=== PATIENT | female | born 1945 | race African-American/Black ===

== ENCOUNTER → 2017-11-16 | Outpatient (CLI) | payer OTHER ==
[~2017-11-16] VITALS: Ht 165.1 cm; Wt 77.5 kg
[~2017-11-16] MED LIST: ASA5UEC PO; ASPIRIN81 M2 PO; CALCIUM 500 +1 EAC5 PO; CARDIZEM CD240 MG PO; CYMBALTA30 MG PO; DICLOFENAC SODI75 MG PO; FLEXERIL PO; HYDROCHLOROTH12.5 M1 PO; LEVOTHYROXIN0.075 MG PO; LEVOTHYROXINE0.05 MG PO; NUCYNTA50 MG PO; OXYBUTYNIN ER PO; PANTOPRAZOLE SO40 M1 PO; PROTONIX40 M1 PO; REFRESH OPTIVE1 EACH OP; TRAMADOL 50 MG50 MG PO; VITAMIN B12 PO; VITAMIN D2000 UNIT PO; VITAMIN D3 PO; VYTORIN 10-201 EACH PO; XANAX 0.25 MG0.25 MG PO; XARELTO20 MG PO; ZOFRAN ODT4 MG PO
--- NOTE | ~2017-11-16 | HPC ---
[facility] Melanie Howard [employer] [address] PAIN MANAGEMENT CONSULTATION Name: DANIKA RODRIGUEZ Room #: REG [facility].#: [id number] Admission: 11/16/17 Attend Phys: Mk Mitchell MD Discharge: Date of : 47 Report #: [id number] THIS REPORT FOR: //name// CC: Leonides Mitchell DATE OF SERVICE: 11/16/2017 The patient is here today with low back pain radiating into her right leg. She has responded beautifully to transforaminal and epidural injections over the course of the last 3 years. Her first injection was in 01/2015. She received another injection in 2015 and then again in June. Finally, she received a transforaminal injection on 08/28/2015, which provided pain relief for 15 months. She did well until about 2 or 3 months ago and the pain began to return. She has x-ray evidence of an L4-L5 spondylolisthesis measuring 8 mm. There was encroachment of the foramen at that level resulting in her radiculopathy. MEDICATIONS: Reviewed and reconciled. She is on no blood thinners. ALLERGIES: CODEINE, HYDROCODONE, TRAMADOL, MEPERIDINE. PQRS: Positive for osteoarthritis of the hands, back and knees. She has had injections in her knees. Pain intensity is 7/10. BMI 28.4. She has not fallen nor is she a fall risk. She is on no blood thinners. She takes no opioids through our clinic. She does not use tobacco. She denies use of alcohol. SOCIAL HISTORY: She lives alone. She does yoga 2 times a week at home. She denies tobacco or alcohol. She is able to provide for all of her own daily activities and housework. PHYSICAL EXAMINATION: Blood pressure 125/83, heart rate 84, respirations 16. BMI 28.4. She is pleasant female, moves from sitting to standing position, uses her arms to get up from the chair. She has positive straight leg raising noted in the sitting and supine position. Pain is primarily in the right following an L4-L5 distribution. Sensation is intact. Deep tendon reflexes are absent in the lower extremities bilaterally. IMPRESSION: L4-L5 spondylolisthesis with foraminal stenosis and radiculopathy. RECOMMENDATIONS: Repeat epidural steroid injection using L4-L5 transforaminal approach. [address] [address] PAIN MANAGEMENT CONSULTATION Name: RODRIGUEZ,DANIKA M Room #: REG [facility] Dwight#: [id number] Admission: 11/16/17 Attend Phys: Mk Mitchell MD Discharge: Date of : 47 Report #: [id number] PROCEDURE: She was taken to fluoroscopic suite for treatment, placed prone, skin prepped with ChloraPrep. Skin anesthetized over the L4-L5 neural foramen. A 20-gauge Tuohy epidural needle was advanced into the neural foramen using triplanar fluoroscopic views. There was no blood or CSF aspirated. 1 mL of Omnipaque was injected. Good spread of dye observed into the epidural space. It was followed by 3 mL of 0.5% lidocaine mixed with 80 mg of triamcinolone. She tolerated the procedure well. She was observed for 45 minutes and discharged. Followup visit planned in the pain clinic on an as needed basis. No medications were ordered. By: [id number] Mk Mitchell MD /nt
[2017-11-16 08:11] VITALS: BP 125/83
== END | disposition home or self-care (01) ==
LOC: PAIN 06:40
DX: M54.16 Radiculopathy, lumbar region (principal); M43.16 Spondylolisthesis, lumbar region; M99.73 Connective tissue and disc stenosis of intervertebral foramina of lumbar region; M19.049 Primary osteoarthritis, unspecified hand; M17.10 Unilateral primary osteoarthritis, unspecified knee; K52.9 Noninfective gastroenteritis and colitis, unspecified; Z98.890 Other specified postprocedural states; Z88.8 Allergy status to other drugs, medicaments and biological substances; Z79.899 Other long term (current) drug therapy; Z87.891 Personal history of nicotine dependence

== ENCOUNTER → 2018-05-29 | Outpatient (CLI) | payer OTHER ==
[~2018-05-29] VITALS: Ht 165.1 cm; Wt 78.2 kg
[~2018-05-29] MED LIST changes: +ASPIR 8181 MG PO
[2018-05-29 13:43] VITALS: BP 138/78
--- NOTE | 2018-05-29 13:54 | NUR ---
Pain Clinic Assessment: 1. History of Osteoarthritis: Left Lower Extremity Right Lower Extremity History of Rheumatoid Arthritis: Not Applicable 2. Height: 5 ft. 5 in. 165.1 cm. Weight: 172.4 lb. oz. 78.200 kg. Patient's BMI: 28.7 3. Vital Signs: BP: 138/78 Pulse: 102 Resp: 16 Temp: 02 Sat: 98 ECG Mon: 4. Pain Intensity: 8 5. Fall Risk: Dizziness: N Needs help standing or walking: N Fallen in the last 3 months: N Fall risk comments: 6. Patient on Blood Thinner: None 7. History of Hypertension: Y 8. Opioid Therapy greater than 6 weeks: N Opiate Contract Signed: 9. Risk Assessment Tool Provided: Opioid Risk Tool 10. Functional Assessment Tool: 11. Recreational Drug Use: Never Drug Type: Tobacco Use: Former Smoker Tobacco Type: Amount or Packs/day: How Many Years: Alcohol Use: No Frequency: Quant:
--- NOTE | 2018-06-01 12:23 | HPC ---
[facility] [place] [address] PAIN MANAGEMENT CONSULTATION Name: DANIKA RODRIGUEZ Room #: REG SOL Mary.#: [id number] Admission: 05/29/18 ������������������ Attend Phys: Mk Mitchell MD Discharge: ������������������ Date of : 47 Report #: [id number] THIS REPORT FOR: //name// CC: Leonides Mitchell DATE OF SERVICE: 05/29/2018 CHIEF COMPLAINT: Followup visit for lumbar radiculopathy, bilateral secondary to grade 1-2 anterolisthesis of L4 on L5. The patient routinely gets excellent response to an epidural injection. We found that she gets her best relief using a transforaminal approach. She had a bilateral transforaminal approach epidural on 11/16/2017 and had sustained relief for many months. Pain is now returning. She would like to repeat the injection. She continues to be active. Her pain is worse when she is standing. It radiates on the left from the hip down the lateral side of the thigh and wraps into the groin. On the right, it wraps from the right buttock down into the right calf. PQRS review has been completed. She scores her pain today as an 8/10. She has a history of osteoarthritis involving both the right and left knee. She maintains her weight and does yoga. Her BMI is 28.7. She is on no blood thinners, but she is treated for hypertension with diltiazem and vitamin. All medications have been reviewed and reconciled. She is not on opioid medication and wants to avoid them. She does not use tobacco nor does she drink alcohol. PHYSICAL EXAMINATION: She is a yarelis 73-year-old 5 feet 5 inches, BMI of 28.7, blood pressure 138/78, heart rate 102. She moves easily from sitting to standing position. Her gait is mildly antalgic. She has pain across her low back. She has a palpable step-off at the level of her spondylolisthesis. Straight leg raising is bilaterally positive following an L5 distribution on the left and an L4-L5 on the right. Sensation is intact. IMPRESSION: Anterolisthesis L4 on L5 causing neural foraminal stenosis and radicular pain. RECOMMENDATION: Repeat transforaminal epidural injection bilateral L4-L5. After informed consent, the patient was taken to fluoroscopic suite where she was placed prone, skin prepped with ChloraPrep. Skin anesthetized first on the left. A 20-gauge Tuohy epidural needle was advanced into the neural foramen using triplanar fluoroscopic views. There was some discomfort as I injected, but an excellent epidurogram was achieved and the medicine almost all extended [address] [address] PAIN MANAGEMENT CONSULTATION Name: RODRIGUEZSERGIODANIKA Mari Room #: REG SOL Hernandez.#: [id number] Admission: 05/29/18 ������������������ Attend Phys: Mk Mitchell MD Discharge: ������������������ Date of : 47 Report #: [id number] nicely without restriction into the epidural space. I then injected a total of 2 mL of 0.5% lidocaine mixed with 40 mg of triamcinolone. The needle was removed. C-arm was then moved to the right and mirror image injection performed at the L4-L5 level again with triplanar fluoroscopic views to advance the needle into the neural foramen. I was well above what was felt to be the disk space; however, when I injected, a diskogram was seen. The needle was withdrawn and repositioned slightly higher to avoid the L4-L5 disk. I was able to obtain a good epidurogram and spread along the L4 nerve root at that level and injected 3 mL of 0.5% bupivacaine mixed with 40 mg of triamcinolone on the right. She tolerated the procedure well, was observed for 30 minutes and discharged. Followup visit planned as needed. No medications were ordered. ��������������������������������������������� <ELECTRONICALLY SIGNED> ���������������������������������������� By: Mk Mitchell MD ��������������������������������������������� 06/01/18 1223 1434 0500 Mk Mitchell MD /nt
== END | disposition home or self-care (01) ==
LOC: PAIN 07:14
DX: M54.16 Radiculopathy, lumbar region (principal); M48.061 Spinal stenosis, lumbar region without neurogenic claudication; M43.16 Spondylolisthesis, lumbar region; I10 Essential (primary) hypertension; M17.0 Bilateral primary osteoarthritis of knee; Z88.6 Allergy status to analgesic agent; Z88.8 Allergy status to other drugs, medicaments and biological substances; Z79.82 Long term (current) use of aspirin; Z79.899 Other long term (current) drug therapy; Z79.891 Long term (current) use of opiate analgesic

== ENCOUNTER → 2018-09-04 | Outpatient (CLI) | payer OTHER ==
[~2018-09-04] VITALS: Ht 165.1 cm; Wt 78.5 kg
[~2018-09-04] MED LIST changes: +MOBIC7.5 MG PO
--- NOTE | ~2018-09-04 | HPC ---
[facility] Melanie [place] [address] PAIN MANAGEMENT CONSULTATION Name: DANIKA RODRIGUEZ Room #: REG SOL Jamila.#: [id number] Admission: 09/04/18 ������������������ Attend Phys: Mk Mitchell MD Discharge: ������������������ Date of : 47 Report #: [id number] THIS REPORT FOR: //name// CC: Leonides Mitchell DATE OF SERVICE: 09/04/2018 CHIEF COMPLAINT: Chronic low back pain secondary to grade 1-2 anterolisthesis of L4-L5. I last saw on the patient 05/29/2018, it has been a little over 3 months. She is here today for an epidural injection. She has always gotten improvement. We have found that a transforaminal injection provides the most relief. She said that she is still better than she was when she came in May, but the pain is starting to return. She made an appointment before the pain got too severe and out of control. Pain is classic for radiculopathy, begins in her back and radiates into her legs. Most of the pain follows an L4-L5 distribution, It is worse on the left than the right, but she has some pain on the right, radiating a bit L3 through L4. She has not had surgery. Her MRI has been reviewed. It creates an 8 mm stenosis at L4-L5 and there was some interval progression at her most recent MRI, which is dated, it is about 3 years old. She still remains active. She does yoga on a regular basis, which she attributes to her continuing ability to do well. PQRS IS COMPLETED: 1. She has a history of osteoarthritis involving lower extremities, hips and knees. 2. BMI is 28.8. 3. Vital signs: Blood pressure 143/75, heart rate 71, respirations 16, and O2 sat 100. 4. Pain intensity at its worst, is a 7/10 with standing and weightbearing. 5. She has not fallen, nor is she considered a fall risk. She is continuing to take good care of herself and exercises regularly including yoga. 6. She is on no blood thinners. 7. She has a history of hypertension, which is treated with medication. We reviewed all medications in the electronic medical record. She is on diltiazem 240 mg daily, extended release. All medications reviewed and there are no noticed interactions. 8. She takes no opioid medication and has not completed an opioid risk tool. [address] [address] PAIN MANAGEMENT CONSULTATION Name: DANIKA RODRIGUEZ Room #: REG [facility]#: [id number] Admission: 09/04/18 ������������������ Attend Phys: Mk Mitchell MD Discharge: ������������������ Date of : 47 Report #: [id number] 9. She denies use of tobacco and alcohol. PHYSICAL EXAMINATION: VITAL SIGNS: As noted above. GENERAL: Pleasant female, alert and oriented. She is outgoing. CHEST: Clear to auscultation. CARDIAC: Rhythm is regular. EXTREMITIES: She moves from sitting to standing position, ambulates with a moderately antalgic gait. She complains of pain across her low back. You can feel a step-up of her spondylolisthesis, which is notable likely grade 2 at this point. She has bilateral straight leg raising discomfort that follows along the posterior lateral aspect of the leg. It is worse on the right than the left today, but she typically complains on the left. There is no loss of sensation. No focal weakness. IMPRESSION: Grade 2 anterolisthesis L4-L5 causing bilateral neural foraminal stenosis and radicular pain. PROCEDURE: Bilateral transforaminal epidural injection under fluoroscopic guidance. PROCEDURE: She was taken to fluoroscopic suite where she was placed prone, skin prepped with ChloraPrep. Skin anesthetized first on the left. Using triplanar fluoroscopic views, I advanced needle into the L4-L5 neural foramen. A 0.25 mL of Omnipaque injected. Good spread of dye was observed into the epidural space and along the L4 nerve root was followed by 3 mL of 0.5% lidocaine mixed with 40 mg of triamcinolone. She tolerated the procedure on the left well. We then moved the C-arm to the right and performed the same injection. Mirror image at the L4-L5 neural foramen using triplanar fluoroscopic views. I injected on that side also. After excellent epidurogram was achieved, a total of 3 mL of 0.5% lidocaine mixed with 40 mg of triamcinolone. She tolerated the procedure well and was observed for 45 minutes taken to recovery room and observed. There were no complications. She was discharged in good condition. A followup visit planned as needed. ��������������������������������������������� ���������������������������������������� By: ��������������������������������������������� [id number] 0803 Mk Mitchell MD /nt
[2018-09-04 09:29] VITALS: BP 143/75
--- NOTE | 2018-09-04 09:41 | NUR ---
Pain Clinic Assessment: 1. History of Osteoarthritis: Left Lower Extremity Right Lower Extremity History of Rheumatoid Arthritis: Not Applicable 2. Height: 5 ft. 5 in. 165.1 cm. Weight: 173.0 lb. oz. 78.472 kg. Patient's BMI: 28.8 3. Vital Signs: BP: 143/75 Pulse: 71 Resp: 16 Temp: 02 Sat: 100 ECG Mon: 4. Pain Intensity: 7 5. Fall Risk: Dizziness: N Needs help standing or walking: N Fallen in the last 3 months: N Fall risk comments: 6. Patient on Blood Thinner: None 7. History of Hypertension: Y 8. Opioid Therapy greater than 6 weeks: N Opiate Contract Signed: 9. Risk Assessment Tool Provided: Opioid Risk Tool 10. Functional Assessment Tool: 11. Recreational Drug Use: Never Drug Type: Tobacco Use: Former Smoker Tobacco Type: Amount or Packs/day: How Many Years: Alcohol Use: No Frequency: Quant:
== END | disposition home or self-care (01) ==
LOC: PAIN 06:51
DX: M48.061 Spinal stenosis, lumbar region without neurogenic claudication (principal); M43.16 Spondylolisthesis, lumbar region; M54.16 Radiculopathy, lumbar region; M19.90 Unspecified osteoarthritis, unspecified site; I10 Essential (primary) hypertension; Z87.891 Personal history of nicotine dependence; Z87.19 Personal history of other diseases of the digestive system; Z88.6 Allergy status to analgesic agent; Z88.8 Allergy status to other drugs, medicaments and biological substances; Z79.82 Long term (current) use of aspirin; Z79.899 Other long term (current) drug therapy; Z98.890 Other specified postprocedural states

== ENCOUNTER → 2018-12-25 | Outpatient (CLI) | payer OTHER ==
[~2018-12-25] VITALS: Ht 165.1 cm; Wt 80.2 kg
[~2018-12-25] MED LIST changes: +MOBIC7.5 M1 PO
[2018-12-25 12:56] VITALS: BP 107/74
--- NOTE | 2018-12-25 13:09 | NUR ---
Pain Clinic Assessment: 1. History of Osteoarthritis: Left Lower Extremity Right Lower Extremity History of Rheumatoid Arthritis: DENIES 2. Height: 5 ft. 5 in. 165.1 cm. Weight: 176.8 lb. oz. 80.196 kg. Patient's BMI: 29.4 3. Vital Signs: BP: 107/74 Pulse: 79 Resp: 16 Temp: 02 Sat: 100 ECG Mon: 4. Pain Intensity: 5 5. Fall Risk: Dizziness: N Needs help standing or walking: N Fallen in the last 3 months: N Fall risk comments: 6. Patient on Blood Thinner: None 7. History of Hypertension: Y 8. Opioid Therapy greater than 6 weeks: N Opiate Contract Signed: 9. Risk Assessment Tool Provided: Opioid Risk Tool 10. Functional Assessment Tool: 11. Recreational Drug Use: Never Drug Type: Tobacco Use: Former Smoker Tobacco Type: Amount or Packs/day: How Many Years: Alcohol Use: No Frequency: Quant:
--- NOTE | 2018-12-26 08:50 | HPC ---
[facility] [address] [place] [address] PAIN MANAGEMENT CONSULTATION Name: DANIKA RODRIGUEZ Room #: REG [facility]#: [id number] Admission: 12/25/18 Attend Phys: Dorie Redmond Discharge: Date of : 47 Report #: [id number] THIS REPORT FOR: //name// CC: Dorie Mitchell MD DATE OF SERVICE: 12/25/2018 CHIEF COMPLAINT: Chronic low back pain secondary to grade 1-2 anterolisthesis. HISTORY OF PRESENT ILLNESS: This is a very pleasant 73-year-old female who returns to the pain clinic today for a refill of her meloxicam that she uses to help treat her ongoing low back pain and she wishes to schedule an appointment for a transforaminal injection, which she has found very beneficial in the past in relieving significant portions of her low back pain that radiates into her left leg. She occasionally does have some pain on her right, but more pronounced on the left. She reports a pain score of 5/10 today. It is worse with walking or early in the morning. Again, she finds the meloxicam very beneficial. She does not take any opioids to help control her pain. ALLERGIES: CODEINE, HYDROCODONE, TRAMADOL and DEMEROL. CURRENT LIST OF MEDICATIONS: Meloxicam 7.5 mg b.i.d., 81 mg aspirin, vitamin D, Cymbalta 30 mg daily, Protonix 40 mg b.i.d., Synthroid 50 mcg daily, Vytorin 10/20 daily, Cardizem 240 mg daily, hydrochlorothiazide 12.5 mg daily, Synthroid 75 mcg daily and alprazolam 0.25 mg p.r.n. PQRS: 1. She has osteoarthritis involving her lower extremities, hips and knees. Denies rheumatoid arthritis. 2. Height is 5 feet 5 inches, weight is 176, BMI is 29. 3. Blood pressure 107/74, pulse is 79, respirations 16, oxygen sat is 100. 4. Pain score is 5/10. 5. Denies dizziness, does not need help walking or standing, has not fallen in the last 3 months. 6. The patient is not on any blood thinners, but does take medicine for hypertension. 7. The patient is not on opioids. 8. Risk assessment tool is low. Functional assessment is . 9. Recreational drug use, she denies. She is a former smoker and does not drink alcohol. According to the prescription monitoring system, the patient has filled her alprazolam and occasional tramadol, but we do not provide her with opioids. [address] [address] PAIN MANAGEMENT CONSULTATION Name: DANIKA RODRIGUEZ Room #: REG SOL Quintanilla#: [id number] Admission: 12/25/18 Attend Phys: Dorie Redmond Discharge: Date of : 47 Report #: [id number] PHYSICAL EXAMINATION: GENERAL: This is alert and orientated 73-year-old female who appears her stated age, placing her current pain score at 5/10 today. HEENT: Normocephalic, atraumatic. Extraocular eye muscles are intact. EXTREMITIES: She has pain that radiates from her lower back into her lateral thigh into her calf on the left and occasional right sacroiliac area. Pain is following the L4-L5 dermatomal distribution. She has bilateral straight leg raising discomfort, again greater on the left than the right. No loss of sensation present. She walks with a slightly antalgic gait. She moves from sitting to standing position without difficulty. She has pain across her lumbosacral region. IMPRESSION: 1. Grade 2 anterolisthesis L4 on L5 bilaterally causing lumbar radiculopathy. 2. Low back pain. PLAN: 1. We discussed treatment options with the patient today. I will gladly refill her meloxicam 7.5 mg b.i.d. The patient takes this most often b.i.d., but occasionally she will decrease the dose. She does not have any stomach discomfort or GI symptoms associated with this medication. Scripts were written for 180 pills with one additional refill that was sent to [facility] today. 2. We will schedule this patient for a transforaminal injection by Dr. Mk Mitchell on 01/16/2019. The patient received significant relief from her injection in August from Dr. Mitchell. 3. The patient encouraged to get her pneumonia vaccination this week, so it will be greater than 2 weeks before her steroid injection. She verbalizes understanding. 4. The patient is seen in collaboration today with Dr. Chuy Monique. <ELECTRONICALLY SIGNED> By: Dorie Redmond 12/26/18 0850 [id number] [id number] Dorie Redmond /brian
== END ==
LOC: PAIN 12-18 07:05
DX: M43.16 Spondylolisthesis, lumbar region (principal); M54.16 Radiculopathy, lumbar region

== ENCOUNTER → 2019-01-18 | Outpatient (CLI) | payer OTHER ==
[~2019-01-18] VITALS: Ht 165.1 cm; Wt 79.8 kg
[~2019-01-18] MED LIST changes: +AZELASTINE137 MCG/0. NASAL; +FLONASE 0.05%50 MCG NASAL; +TRAMADOL-ACETA1 EACH PO; +TRAZODONE HCL100 MG PO; +VITAMIN D50000 UNIT PO
--- NOTE | ~2019-01-18 | HPC ---
[facility] [place] [address] PAIN MANAGEMENT CONSULTATION Name: DANIKA RODRIGUEZ Room #: REG SOL [facility].#: [id number] Admission: 01/18/19 Attend Phys: Mk Mitchell MD Discharge: Date of : 47 Report #: [id number] THIS REPORT FOR: //name// CC: Leonides Mitchell DATE OF SERVICE: 01/18/2019 Followup visit for grade 1-2 anterolisthesis with bilateral lumbar radiculopathy. The patient returns to pain clinic today for bilateral transforaminal epidural injections. I provided these injections for her on an intermittent basis dating back several years. This will be her third injection in 2019. She had one injection in 2018, one in 2016 and she had 3 injections in 2015. She does not want surgery and these injections have provided a nice lasting relief. Pain is worse on the left and it radiates through an L4-L5 distribution. I reviewed her MRI once again, which shows the spondylolisthesis of L4 with respect to L5. The measurement on that is about 8 mm. There was some interval progression earlier, but it seems to be stable. It creates bilateral spinal stenosis. PQRS: 1. Osteoarthritis involving hips and knees. 2. BMI 29.3. 3. Vital signs: Blood pressure 138/77, heart rate 77. 4. Pain intensity is 10/10 today bilaterally radiating into both legs. Straight leg raising is positive following an L4-L5 distribution. 5. No falls. 6. No blood thinning medications. 7. She is under treatment for hypertension by Dr. Guevara and we reviewed all of her medications from the electronic medical record. 8. No opioid medications, so no opioid agreement. She has, however, completed an opioid risk tool assessment and scores at a very low risk for any sort of addiction should we choose to use them in the future. Functional assessment score 26/70. 9. She denies use of tobacco and alcohol. PHYSICAL EXAMINATION: As noted above. Her gait is mildly antalgic. IMPRESSION: Lumbar radiculopathy secondary to grade 2 anterolisthesis L4 on L5 with bilateral radiculopathy involving L4-L5 distribution, worse on the left than the right. [facility] [address] [place] [address] PAIN MANAGEMENT CONSULTATION Name: DANIKA RODRIGUEZ Room #: REG [facility].#: [id number] Admission: 01/18/19 Attend Phys: Mk Mitchell MD Discharge: Date of : 47 Report #: [id number] PROCEDURE: Bilateral transforaminal epidural injections, L4-L5 under fluoroscopic guidance. She was taken to fluoroscopic suite for treatment, placed prone, skin prepped with ChloraPrep. Skin anesthetized over the L4-L5 neural foramen on the left first. A 22-gauge needle advanced into the neural foramen on the first attempt with loss of resistance. There was no blood or CSF aspirated. A mL of Omnipaque demonstrated an excellent epidurogram and spread along the L4 nerve root. It was then followed by 2 mL of 0.5% lidocaine mixed with 40 mg of triamcinolone. The needle was removed. C-arm was moved to the right and I performed a mirror image injection at the L4-L5 neural foramen. Once again good epidurogram achieved as well as injection along the L4 nerve root on that side. She tolerated the injection well. She was observed in recovery room for about 30 minutes and discharged with reduction in pain score from 10 to 0! She felt well and will be seen on an as needed basis going forward in the future. No medications were ordered. By: 1327 2201 Mk Mitchell MD /nt
[2019-01-18 10:18] VITALS: BP 138/77
--- NOTE | 2019-01-18 10:31 | NUR ---
Pain Clinic Assessment: 1. History of Osteoarthritis: BACK B/L HANDS "ALL OVER" History of Rheumatoid Arthritis: DENIES 2. Height: 5 ft. 5 in. 165.1 cm. Weight: 176.0 lb. oz. 79.833 kg. Patient's BMI: 29.3 3. Vital Signs: BP: 138/77 Pulse: 77 Resp: 16 Temp: 02 Sat: 97 ECG Mon: 4. Pain Intensity: 10-TODAY 5. Fall Risk: Dizziness: N Needs help standing or walking: N Fallen in the last 3 months: N Fall risk comments: 6. Patient on Blood Thinner: None 7. History of Hypertension: Y 8. Opioid Therapy greater than 6 weeks: N Opiate Contract Signed: 9. Risk Assessment Tool Provided: Opioid Risk Tool 10. Functional Assessment Tool: 11. Recreational Drug Use: Never Drug Type: Tobacco Use: Former Smoker Tobacco Type: Amount or Packs/day: How Many Years: Alcohol Use: No Frequency: Quant:
== END | disposition home or self-care (01) ==
LOC: PAIN 06:48
DX: M54.16 Radiculopathy, lumbar region (principal); M43.16 Spondylolisthesis, lumbar region; G89.29 Other chronic pain; M19.90 Unspecified osteoarthritis, unspecified site; I10 Essential (primary) hypertension; Z98.890 Other specified postprocedural states; Z79.899 Other long term (current) drug therapy; Z88.8 Allergy status to other drugs, medicaments and biological substances; Z79.82 Long term (current) use of aspirin

== ENCOUNTER → 2019-10-08 | Outpatient (CLI) | payer OTHER ==
[~2019-10-08] VITALS: Ht 165.1 cm; Wt 79.7 kg
[~2019-10-08] MED LIST changes: +BETAMETHASONE D15 G3 TOP; +CELEBREX 200 M200 MG PO; +SYSTANE 0.3-0.1 EACH OPHTHALMIC
--- NOTE | ~2019-10-08 | HPC ---
[facility] [place] [address] PAIN MANAGEMENT CONSULTATION Name: DANIKA RODRIGUEZ Room #: REG SOL Hernandez.#: [id number] Admission: 10/08/19 Attend Phys: Mk Mitchell MD Discharge: Date of : 47 Report #: [id number] THIS REPORT FOR: cc: Leonides Guevara MD, Bernard O. MD Morgan,Mk Resendiz MD ~ CC: Leonides Mitchell DATE OF SERVICE: 10/08/2019 Followup visit for spondylolisthesis L4-L5, bilateral lumbar radiculopathy involving L4, L5, S1. The patient returns to pain clinic today for bilateral transforaminal injections. She has had these 3-4 times a year for a number of years with good benefit. I reviewed her most recent MRI, which is dated but shows underlying problem which is the L4-L5 spondylolisthesis. She had bilateral foraminal stenosis 5 years ago, I am sure it is no better at this time. The anterolisthesis has progressed some. She would like to get bilateral injections again today. PQRS REVIEW: Positive for osteoarthritis as well, hips and knees. BMI is 29.3. Blood pressure 135/82, heart rate 79, respirations 16, O2 sat 100, pain intensity 7/10. No falls recently. No blood thinners. She is under treatment for hypertension. She is on no opioids, cannot tolerate them. Opioid risk tool score of 0. No use of tobacco or alcohol. IMPRESSION: Bilateral lumbar radiculopathy, L4-L5 secondary to spondylolisthesis. PROCEDURE: Bilateral transforaminal epidural injections. DESCRIPTION OF PROCEDURE: After informed consent, she was taken to fluoroscopic suite, placed prone, skin prepped with ChloraPrep. Skin anesthetized first on the left. Using triplanar fluoroscopic views, I advanced the needle into the neural foramen and 0.25 mL of Omnipaque demonstrated excellent spread along the L4 nerve root and into the epidural space, was followed by 3 mL of 0.5% lidocaine mixed with 40 mg of triamcinolone. Needle was removed. Mirror image injection was performed on the right using the same technique. There were no complications. She tolerated the procedure well. She was taken to recovery room for observation. [address] [address] PAIN MANAGEMENT CONSULTATION Name: DANIKA RODRIGUEZ Room #: REG [facility]#: [id number] Admission: 10/08/19 Attend Phys: Mk Mitchell MD Discharge: Date of : 47 Report #: [id number] Followup visit planned as needed. By: [id number] Mk Mitchell MD /nt
[2019-10-08 12:58] VITALS: BP 135/82
--- NOTE | 2019-10-08 13:19 | NUR ---
Pain Clinic Assessment: 1. History of Osteoarthritis: BACK B/L HANDS "ALL OVER" History of Rheumatoid Arthritis: DENIES 2. Height: 5 ft. 5 in. 165.1 cm. Weight: 175.8 lb. oz. 79.742 kg. Patient's BMI: 29.3 3. Vital Signs: BP: 135/82 Pulse: 79 Resp: 16 Temp: 02 Sat: 100 ECG Mon: 4. Pain Intensity: 6-7 TODAY 5. Fall Risk: Dizziness: N Needs help standing or walking: N Fallen in the last 3 months: N Fall risk comments: 6. Patient on Blood Thinner: None 7. History of Hypertension: Y 8. Opioid Therapy greater than 6 weeks: N Opiate Contract Signed: 9. Risk Assessment Tool Provided: Opioid Risk Tool 10. Functional Assessment Tool: 11. Recreational Drug Use: Never Drug Type: Tobacco Use: Former Smoker Tobacco Type: Amount or Packs/day: How Many Years: Alcohol Use: No Frequency: Quant:
== END | disposition home or self-care (01) ==
LOC: PAIN 07:02
PROVIDERS: ATTEND Anesthesiology Pain Medicine
DX: M54.16 Radiculopathy, lumbar region (principal); G89.29 Other chronic pain; M43.16 Spondylolisthesis, lumbar region; M19.90 Unspecified osteoarthritis, unspecified site; I10 Essential (primary) hypertension; Z98.890 Other specified postprocedural states; Z79.899 Other long term (current) drug therapy; Z79.891 Long term (current) use of opiate analgesic; Z87.891 Personal history of nicotine dependence; Z88.8 Allergy status to other drugs, medicaments and biological substances

== ENCOUNTER → 2020-01-18 | Outpatient (CLI) | payer OTHER ==
[~2020-01-18] VITALS: Ht 165.1 cm; Wt 75.2 kg
[~2020-01-18] MED LIST changes: +IBU800 MG PO
[2020-01-18 09:18] VITALS: BP 130/70
--- NOTE | 2020-01-18 09:37 | NUR ---
Pain Clinic Assessment: 1. History of Osteoarthritis: BACK B/L HANDS "ALL OVER" History of Rheumatoid Arthritis: DENIES 2. Height: 5 ft. 5 in. 165.1 cm. Weight: 165.8 lb. oz. 75.206 kg. Patient's BMI: 27.6 3. Vital Signs: BP: 130/70 Pulse: 84 Resp: 16 Temp: 02 Sat: 98 ECG Mon: 4. Pain Intensity: 7 5. Fall Risk: Dizziness: N Needs help standing or walking: N Fallen in the last 3 months: N Fall risk comments: 6. Patient on Blood Thinner: None 7. History of Hypertension: Y 8. Opioid Therapy greater than 6 weeks: N Opiate Contract Signed: 9. Risk Assessment Tool Provided: Opioid Risk Tool 10. Functional Assessment Tool: 11. Recreational Drug Use: Never Drug Type: Tobacco Use: Former Smoker Tobacco Type: Amount or Packs/day: How Many Years: Alcohol Use: No Frequency: Quant:
== END | disposition home or self-care (01) ==
LOC: PAIN 06:47
PROVIDERS: ATTEND Anesthesiology Pain Medicine
DX: M54.16 Radiculopathy, lumbar region (principal); G89.29 Other chronic pain; M43.16 Spondylolisthesis, lumbar region; I10 Essential (primary) hypertension; E78.00 Pure hypercholesterolemia, unspecified; E07.9 Disorder of thyroid, unspecified; M19.90 Unspecified osteoarthritis, unspecified site; G47.00 Insomnia, unspecified; Z98.890 Other specified postprocedural states; Z79.899 Other long term (current) drug therapy; Z87.891 Personal history of nicotine dependence; Z87.442 Personal history of urinary calculi; Z88.6 Allergy status to analgesic agent

== ENCOUNTER → 2020-05-02 | Outpatient (CLI) | payer OTHER ==
[~2020-05-02] VITALS: Ht 165.1 cm; Wt 77.3 kg
[~2020-05-02] MED LIST changes: +LOSARTAN POTASS50 MG PO; +MELOXICAM7.5 MG PO; +VITAMIN D21250 MC1 PO; -VITAMIN D50000 UNIT PO
[2020-05-02 13:00] VITALS: BP 148/60
--- NOTE | 2020-05-02 13:06 | NUR ---
Pain Clinic Assessment: 1. History of Osteoarthritis: BACK B/L HANDS "ALL OVER" History of Rheumatoid Arthritis: DENIES 2. Height: 5 ft. 5 in. 165.1 cm. Weight: 170.4 lb. oz. 77.293 kg. Patient's BMI: 28.4 3. Vital Signs: BP: 148/60 Pulse: 78 Resp: 18 Temp: 02 Sat: 98 ECG Mon: 4. Pain Intensity: 5 5. Fall Risk: Dizziness: N Needs help standing or walking: N Fallen in the last 3 months: N Fall risk comments: 6. Patient on Blood Thinner: None 7. History of Hypertension: Y 8. Opioid Therapy greater than 6 weeks: N Opiate Contract Signed: 9. Risk Assessment Tool Provided: Opioid Risk Tool 10. Functional Assessment Tool: 11. Recreational Drug Use: Never Drug Type: Tobacco Use: Former Smoker Tobacco Type: Amount or Packs/day: How Many Years: Alcohol Use: No Frequency: Quant:
== END | disposition home or self-care (01) ==
LOC: PAIN 07:02
PROVIDERS: ATTEND Anesthesiology Pain Medicine
DX: M54.16 Radiculopathy, lumbar region (principal); G89.29 Other chronic pain; M43.16 Spondylolisthesis, lumbar region; I10 Essential (primary) hypertension; E07.9 Disorder of thyroid, unspecified; E78.00 Pure hypercholesterolemia, unspecified; Z98.890 Other specified postprocedural states; Z79.899 Other long term (current) drug therapy; Z87.442 Personal history of urinary calculi; Z87.891 Personal history of nicotine dependence; Z79.891 Long term (current) use of opiate analgesic; Z88.8 Allergy status to other drugs, medicaments and biological substances; Z79.01 Long term (current) use of anticoagulants

== ENCOUNTER → 2020-07-14 | Outpatient (CLI) | payer OTHER ==
[~2020-07-14] VITALS: Ht 165.1 cm; Wt 74.8 kg
[~2020-07-14] MED LIST changes: +GABAPENTIN 100100 MG PO
[2020-07-14 11:06] VITALS: BP 127/68
--- NOTE | 2020-07-14 11:37 | NUR ---
Pain Clinic Assessment: 1. History of Osteoarthritis: BACK B/L HANDS "ALL OVER" History of Rheumatoid Arthritis: DENIES 2. Height: 5 ft. 5 in. 165.1 cm. Weight: 165.0 lb. oz. 74.844 kg. Patient's BMI: 27.5 3. Vital Signs: BP: 127/68 Pulse: 77 Resp: 16 Temp: 02 Sat: 100 ECG Mon: 4. Pain Intensity: 8-9 5. Fall Risk: Dizziness: N Needs help standing or walking: N Fallen in the last 3 months: N Fall risk comments: 6. Patient on Blood Thinner: None 7. History of Hypertension: Y 8. Opioid Therapy greater than 6 weeks: N Opiate Contract Signed: 9. Risk Assessment Tool Provided: Opioid Risk Tool 10. Functional Assessment Tool: 11. Recreational Drug Use: Never Drug Type: Tobacco Use: Former Smoker Tobacco Type: Amount or Packs/day: How Many Years: Alcohol Use: No Frequency: Quant:
== END | disposition home or self-care (01) ==
LOC: PAIN 07:15
PROVIDERS: ATTEND Anesthesiology Pain Medicine
DX: M54.16 Radiculopathy, lumbar region (principal); M43.16 Spondylolisthesis, lumbar region; G89.29 Other chronic pain; I10 Essential (primary) hypertension; M19.90 Unspecified osteoarthritis, unspecified site; Z98.890 Other specified postprocedural states; Z79.899 Other long term (current) drug therapy; Z87.891 Personal history of nicotine dependence; Z79.891 Long term (current) use of opiate analgesic; Z88.8 Allergy status to other drugs, medicaments and biological substances